=== PATIENT | male | born 1940 | race Caucasian/White ===

== ENCOUNTER 2019-04-30 07:46 | Day surgery (SDC) ==
[2019-04-30] MEDS: BETADINE OPTH PREP OP PRN ×2 (07:50→09:05)
[2019-04-30] MEDS: TETRACAINE 0.5% UNIT-DOSE OP PRN ×2 (07:50→09:05)
[2019-04-30] MEDS: CYCLOGYL 2% OPTH OP PRN ×3 (07:51→08:01)
[2019-04-30] MEDS ORDERED: DEX-MOXI-KETOR OPTH INJ 1/0.5/0.4 MG/ML IO ONE (07:56)
[2019-04-30] MEDS ORDERED: LIDOCAINE 1%/PHENYLEPHRINE 1.5% BSS (SURGERY) INTRAOCULA ONE (07:56)
[2019-04-30] MEDS ORDERED: LIDOCAINE 1% 20 ML MDV ID STA (07:56)
[2019-04-30] MEDS ORDERED: BSS WITH EPINEPHRINE OP ONE (07:56)
[2019-04-30] MEDS ORDERED: ZOFRAN 4 MG/2 ML IVP ONE (07:56)
[2019-04-30 08:00] VITALS: TEMP 97.3
[2019-04-30] MEDS ORDERED: SUBLIMAZE ONE (09:17)
[2019-04-30] MEDS ORDERED: ZOFRAN 4 MG/2 ML ONE (09:17)
[2019-04-30] MEDS ORDERED: VERSED ONE (09:17)
[2019-05-02 09:19] VITALS: BP 137/78
== END 2019-04-30 10:10 | disposition home or self-care (01) ==
LOC: SURG 07:46
PROVIDERS: ATTEND Ophthalmology
DX: H25.12 Age-related nuclear cataract, left eye (principal)